=== PATIENT | male | born 1955 | race Caucasian/White ===

== ENCOUNTER 2020-11-09 09:59 | Outpatient (CLI) | payer BC, SELFPAY | END 2020-11-09 10:00 | disposition home or self-care (01) | LOC: ANHCOVIDVC 09:59 | PROVIDERS: PCP Family Medicine | DX: Z23 Encounter for immunization (principal) | CPT/HCPCS: 0001A; 91300 ==

== ENCOUNTER 2020-11-30 09:57 | Outpatient (CLI) | payer BC, SELFPAY | END 2020-11-30 09:58 | disposition home or self-care (01) | LOC: ANHCOVIDVC 09:57 | PROVIDERS: PCP Family Medicine | DX: Z23 Encounter for immunization (principal) | CPT/HCPCS: 0002A; 91300 ==